=== PATIENT | male | born 2000 | race Caucasian/White ===

== ENCOUNTER 2020-09-26 08:18 | Emergency (ER) | payer OTHER ==
[2020-09-26] MEDS ORDERED: HYDROcodone/APAP 5-325MG 1 EACH TAB PO STA (08:31)
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
--- NOTE | 2020-09-26 08:57 | XR ---
EXAMINATION TYPE: XR foot complete RT DATE OF EXAM: 09/26/2020 CLINICAL HISTORY: Pain TECHNIQUE: Frontal, lateral, and oblique images of the right foot are obtained. COMPARISON: None FINDINGS: There is no acute fracture/dislocation evident in the right foot. The joint spaces in the right foot appear within normal limits. The overlying soft tissue appears unremarkable. IMPRESSION: There is no acute fracture or dislocation in the right foot.
[2020-09-26] MEDS ORDERED: ACET/COD 300 MG/30 MG STARTER PACK 6 TAB BTL PO STA (09:43)
[2020-09-26 09:56] VITALS: BP 142/83; PULSE 88; RESP 18; TEMP 98.3
== END 2020-09-26 09:56 | disposition home or self-care (01) ==
LOC: EC 08:18
DX: M79.671 Pain in right foot (principal); Y93.01 Activity, walking, marching and hiking; F17.200 Nicotine dependence, unspecified, uncomplicated; F12.90 Cannabis use, unspecified, uncomplicated
CPT/HCPCS: 99283